=== PATIENT | female | born 2000 | race Caucasian/White ===

== ENCOUNTER 2022-08-15 14:14 | Emergency (ER) | payer BC, SELFPAY ==
[2022-08-15 14:15] VITALS: BP 166/85; PULSE 109; RESP 16; TEMP 36.8; O2SAT 99; BMI 38.0
[2022-08-15 15:27] LABS: Absolute Lymphocyte Count 2.63 X10^3/uL (0.83-4.51); Absolute Neutrophil Count 5.7 X10^3/uL (2.0-7.7); Basophil# 0.08 X10^3/uL; Basophil% 0.8 % (0-1); Eosinophil# 0.13 X10^3/uL; Eosinophils% 1.4 % (0-5); Hemoglobin 14.8 g/dL (12.0-15.0); Lymphocyte # 2.63 X10^3/ul (0.83-4.51); Lymphocyte % 27.7 % (19-41); Mean Corp Hgb Conc 32.9 g/dL (32-36); Mean Corpuscular Hgb 28.2 pg (27.0-32.0); Mean Corpuscular Volume 85.7 fL (81-99); Mean Platelet Vol. 10.7 fl (6.2-12.0); Monocyte# 0.87 X10^3/uL; Monocyte% 9.1 % (0-10); NRBC Flagged by Analyzer 0 % (0-5); Neutrophil # 5.73 X10^3/uL (2.7-7.7); Neutrophil % 60.3 % (47-70); Platelet Count 273 K/mm3 (150-450); RBC Distribution Width CV 12.3 % (11.6-14.6); RBC Distribution Width SD 38.5 fl (35.1-43.9); Red Blood Count 5.25 M/mm3 (4.2-5.4); White Blood Count 9.5 K/mm3 (4.4-11.0)
--- NOTE | 2022-08-15 15:27 | EDS_ITS ---
HPI History of Present Illness Chief Complaint: Abd Pain Informant: patient and parent Narrative Narrative: Patient presents with abdominal pain. Patient states she started pain in her abdomen about 10 days ago. It is mostly in the epigastric area but she really has trouble localizing it. She states when she swallows food sometimes it seems to almost get stuck but she is able to get it down. And she has a strong taste of acid in her throat frequently. No b ack pain. She has no trouble eating. She is eating normally and it does not aggravate her symptoms. Her bowels are normal. She has never had fevers or chills. She did not have urinary symptoms. She went to urgent care today. They checked her urine which was normal. They pressed some more on the right side of her abdomen and then they sent her here. Patient states it does not hurt on her right lower quadrant. Patient has had no prior abdominal surgeries. She is overall healthy. Not having pelvic pain. [facility] Medical History Right wrist sprain Sprain of right hand Home Medications esomeprazole magnesium 20 mg capsule,delayed release (Nexium 24HR) 20 mg PO DAILY 30 days #30 caps 08/15/22 [Rx Last Taken Unknown] sucralfate 1 gram tablet (Carafate) 1 g PO BID #14 tabs 08/15/22 [Rx Last Taken Unknown] Allergy/AdvReac Type Severity Reaction Status Date / Time No Known Allergies Allergy Verified 08/15/22 14:18 Social History Smoking Status: Never smoker ROS ROS ED Constitutional Constitutional ED: Denies chills, fever(s), subjective or sweats ENT ENT ED: Denies rhinorrhea Cardiovascular Cardiovascular: Denies chest pain or palpitations Respiratory/Chest Respiratory/Chest: Denies cough or dyspnea Gastrointestinal Gastrointestinal: Reports abdominal pain; Denies constipation, diarrhea, melena, nausea or vomiting Genitourinary Genitourinary ED: Denies dysuria, hematuria or urinary frequency Musculoskeletal Musculoskeletal: Denies back pain or neck pain Integumentary Denies rash Neurologic Neurologic: Denies headache(s), paresthesias or weakness Endocrine Endocrinology: Denies polydipsia or polyuria Hematologic/Lymphatic Hematologic/Lymphatic: Denies easy bleeding, easy bruising or lymphadenopathy Allergic/Immunologic Allergic/Immunologic ED: Denies urticaria EXAM Physical Exam Narrative Exam Narrative: Patient is awake alert no acute distress sitting comfortably in bed. Carries on normal conversation. HEENT shows moist mucous membranes. No facial trauma. Throat is normal. Eyes show no icterus Neck is supple no stridor Lungs are clear and there is no discomfort with breathing. Heart is regular with no murmur gallop or rub. Abdomen is soft. I do not get any tenderness anywhere in the abdomen. Even after talking about the right lower quadrant tenderness that may have been felt that urgent care. I pressed very firmly in that area and shook my hand and there is no pain. shows no CVA or suprapubic tenderness Extremities show no rash or edema Neurologically she is awake alert appropriate Skin shows no rash pallor jaundiced mottling. Const Vital Signs: 08/15/22 14:15 Temperature 98.2 F Temperature Source Temporal Pulse Rate 109 H Respiratory Rate 16 Blood Pressure 166/85 H Blood Pressure Mean 112 Pulse Ox 99 Oxygen Delivery Method Room Air MDM MDM MDM Narrative Medical decision making narrative: Patient CBC is normal white count hemoglobin and platelets. Electrolytes are normal other than minimal elevation of the chloride. Liver function test are normal. Lipase is negative. is negative. All these are negative despite 10 days of symptoms and eating and drinking well. With her epigastric pain and acid taste I think most of this is GERD and peptic ulcer disease. PPI I think is appropriate. We will try a few days of Carafate to calm symptoms. We did discuss about diet. Mom asked about alcohol I explained that that does contribute to this. Sodas chocolate. Also citrus drinks. Evidently she does have a lot of grapefruit juice. There is also been pizza and tomato sauces. We discussed that cutting these acid foods out alcohol chocolate will provide significant benefit. Patient is not a smoker. All questions were answered. Reasons for return were discussed. I will refer them for primary physician for follow-up. Lab Data Labs: Laboratory Results - last 24 hr 08/15/22 08/15/22 08/15/22 15:00 15:00 15:00 WBC 9.5 RBC 5.25 Hgb 14.8 Hct 45.0 MCV 85.7 MCH 28.2 MCHC 32.9 RDW Std Deviation 38.5 RDW Coeff of Brunilda 12.3 Plt Count 273 MPV 10.7 Immature Gran % (Auto) 0.700 Neut % (Auto) 60.3 Lymph % (Auto) 27.7 Colbert % (Auto) 9.1 Eos % (Auto) 1.4 Baso % (Auto) 0.8 Absolute Neuts (auto) 5.7 Absolute Lymphs (auto) 2.63 Nucleated RBC % 0 Sodium 140 Potassium 3.8 Chloride 108 H Carbon Dioxide 26.0 Anion Gap 6 BUN 15 Creatinine 0.98 Estim Creat Clear Calc 81.02 Est GFR (MDRD) Af Amer 92 Est GFR (MDRD) Non-Af 76 BUN/Creatinine Ratio 15.4 Glucose 99 Calcium 9.2 Total Bilirubin Direct Bilirubin AST ALT Alkaline Phosphatase Total Protein Albumin Globulin Lipase Serum , Qual NEGATIVE 08/15/22 08/15/22 15:36 15:36 WBC RBC Hgb Hct MCV MCH MCHC RDW Std Deviation RDW Coeff of Brunilda Plt Count MPV Immature Gran % (Auto) Neut % (Auto) Lymph % (Auto) Colbert % (Auto) Eos % (Auto) Baso % (Auto) Absolute Neuts (auto) Absolute Lymphs (auto) Nucleated RBC % Sodium Potassium Chloride Carbon Dioxide Anion Gap BUN Creatinine Estim Creat Clear Calc Est GFR (MDRD) Af Amer Est GFR (MDRD) Non-Af BUN/Creatinine Ratio Glucose Calcium Total Bilirubin 0.80 Direct Bilirubin 0.21 AST 10 L ALT 25 Alkaline Phosphatase 60 Total Protein 6.9 Albumin 3.6 Globulin 3.3 Lipase 87 Serum , Qual Discharge Plan Triage Chief Complaint: Abd Pain ED Provider: Chris Nguyễn Dx/Rx/DC Orders Clinical Impression: Epigastric pain, Gastroesophageal reflux disease Instructions: ED GERD (Adult) Prescriptions: New esomeprazole magnesium [Nexium 24HR] 20 mg capsule,delayed release(DR/EC) 20 mg PO DAILY 30 Days Qty: 30 0RF sucralfate [Carafate] 1 gram tablet 1 g PO BID Qty: 14 0RF Primary Care Provider: Care Physician,No Primary Referrals: Isiah Collado MD [Med Staff - Accounts Receivable Analyst] - 1 Week Care Physician,No Primary [Primary Care Provider] - Disposition Disposition: Home, Self Care
[2022-08-15 15:45] LABS: Internal QC Validated? YES +Cl - CLEAR BKGD; Pregnancy, Serum, hCG Quali. NEGATIVE Negative
[2022-08-15 15:46] LABS: Anion Gap 6 (5-15); BUN 15 mg/dL (7-18); BUN/Creat Ratio 15.4 RATIO (10-20); Calcium,Total 9.2 mg/dL (8.5-10.1); Chloride 108 mmol/L (98-107); Creatinine, Serum 0.98 mg/dL (0.55-1.02); EST Glomerular Filtration Rate 76 mL/min (>60); Est Glom Filt Rate - Afr Amer 92 mL/min (>60); Estimated Creatinine Clearance 81.02 ml/min; Glucose 99 mg/dL (74-106); Potassium 3.8 mmol/L (3.5-5.1); Sodium Level 140 mmol/L (136-145)
[2022-08-15 15:57] LABS: Lipase 87 U/L (73-393)
[2022-08-15 16:00] LABS: AST(SGOT) 10 U/L (15-37); Alanine Aminotransfer ALT/SGPT 25 U/L (13-56); Albumin, Serum 3.6 g/dL (3.2-5.0); Alkaline Phosphatase 60 U/L (45-117); Bilirubin, Direct 0.21 mg/dL (0.00-0.30); Globulin 3.3 g/dL (2.2-4.2); Protein, Total 6.9 g/dL (6.4-8.2)
[2022-08-15 16:55] VITALS: BP 124/63; PULSE 72; RESP 15; O2SAT 98
== END 2022-08-15 16:56 | disposition home or self-care (01) ==
PROVIDERS: Emergency Provider Emergency Medicine; Visit Provider Emergency Medicine
DX: R10.13 Epigastric pain (principal); K21.9 Gastro-esophageal reflux disease without esophagitis
CPT/HCPCS: 80048; 80076; 83690; 84703; 85025; 99282; A4216; J3490